=== PATIENT | female | born 1930 | race Caucasian/White ===

== ENCOUNTER → 2019-07-13 | Outpatient (CLI) | payer MEDICARE, BC ==
--- NOTE | 2019-07-13 12:07 | FL ---
Barium swallow HISTORY: Dysphasia 31 seconds fluoroscopy time, 16 intraoperative images document the procedure. Patient was given high density barium to drink. There is a partial intrathoracic stomach, hiatal alvino ia noted. Aorta is dense. Heart is enlarged. Exam is limited by patient's ability to cooperate with exam. IMPRESSION: Large hiatal hernia with partial intrathoracic stomach, limited exam.
== END | disposition home or self-care (01) ==
LOC: RADUSWWP 10:40
PROVIDERS: ATTEND Internal Medicine Gastroenterology
DX: K44.9 Diaphragmatic hernia without obstruction or gangrene (principal)
CPT/HCPCS: 74220

== ENCOUNTER → 2019-09-13 | Outpatient (CLI) | payer MEDICARE, BC ==
--- NOTE | 2019-09-13 12:23 | XR ---
Right knee HISTORY: Trauma and pain 3 views of the right knee Bone mineralization is reduced which could limit sensitivity. Alignment, lateral joint space is maint ained. Marginal spurring present at the medial compartment with some joint space loss, mild spurring and joint space loss at the patellofemoral joint. Atherosclerotic vascular calcifications are present . No evident joint effusion. IMPRESSION: Osteoarthritis and osteoporosis. No fracture or dislocation is evident.
--- NOTE | 2019-09-13 12:33 | XR ---
Right hand and right wrist HISTORY: Right hand pain, trauma several days prior 3 views of the right hand and 4 views of the right wrist Bone mineralization is reduced. Osteoarthritic changes are present. Bone mineralization is reduced. A lignment is maintained with exception of some posterior subluxation at the distal interphalangeal paloma nt of the fifth digit. IMPRESSION: No fracture or dislocation. Additional findings above.
--- NOTE | 2019-09-13 12:37 | XR ---
Bilateral elbows HISTORY: Pain, trauma 3 views of each elbow submitted. Bone mineralization is reduced. Mild osteoarthritic changes are present right elbow. No evident joint effusion within either elbow. Alignment is maintained. IMPRESSION: No fracture or dislocation.
--- NOTE | 2019-09-13 12:55 | XR ---
Right hip HISTORY: Trauma and pain 2 views of the right hip Bone mineralization is reduced which could limit sensitivity. Difficult to exclude nondisplaced fract ures of the superior inferior pubic rami. No dislocation. Vascular calcifications noted in the pelvis . IMPRESSION: Difficult to exclude nondisplaced fractures as described in the pubic rami, CT or bone sc an could be performed for increased sensitivity.
== END | disposition home or self-care (01) ==
LOC: RADXRMAIN 11:14
PROVIDERS: ATTEND Family Medicine
DX: M17.11 Unilateral primary osteoarthritis, right knee (principal); M19.031 Primary osteoarthritis, right wrist; M19.041 Primary osteoarthritis, right hand; M81.0 Age-related osteoporosis without current pathological fracture; S63.246A Subluxation of distal interphalangeal joint of right little finger, initial encounter; M25.551 Pain in right hip; M25.521 Pain in right elbow; M25.522 Pain in left elbow
CPT/HCPCS: 73502

== ENCOUNTER 2019-11-19 11:58 | Emergency (ER) | payer MEDICARE, BC ==
[2019-11-19 12:23] VITALS: RESP 20
--- NOTE | 2019-11-19 12:39 | ED ---
General Adult HPI - General Chief complaint: Extremity Injury, Upper Stated complaint: Hip Pain Time Seen by Provider: 11/19/19 12:07 Source: patient, EMS Mode of arrival: EMS Limitations: physical limitation - History of Present Illness Initial comments: Patient is an 88-year-old female presenting to the emergency department via EMS with complaints of right hip, right low back pain 3 days. Patient's daughter is here with her now. Patient states she does live by herself and over the past few days have been having increase in pain in her right low back and into her right hip. She denies any recent falls or trauma. Patient states she does like to take walks. She states she knows she has arthritis of both knees as well as right hip. she denies any recent fever, chills, abdominal pain, urinary complaints. she has no other complaints at this time. Upon arrival to the er her vital signs are stable. - Related Data Allergies Allergy/AdvReac Type Severity Reaction Status Date / Time ibuprofen [From Motrin] Allergy Unknown Verified 11/19/19 12:04 Review of Systems ROS Statement: Those systems with pertinent positive or pertinent negative responses have been documented in the HPI. ROS Other: All systems not noted in ROS Statement are negative. Past Medical History Past Medical History: Hypertension, Rheumatoid Arthritis (RA) History of Any Multi-Drug Resistant Organisms: None Reported Past Surgical History: Cholecystectomy Past Psychological History: No Psychological Hx Reported Smoking Status: Never smoker Past Alcohol Use History: None Reported Past Drug Use History: None Reported General Exam - General Exam Comments Initial Comments: GENERAL: Well-appearing, well-nourished and in no acute distress. HEAD: Atraumatic, normocephalic. EYES: Pupils equal round and reactive to light, extraocular movements intact, sclera anicteric, conjunctiva are normal. ENT: Moist mucous membranes. NECK: Normal range of motion, supple without lymphadenopathy or JVD. LUNGS: Breath sounds clear to auscultation bilaterally and equal. No wheezes rales or rhonchi. HEART: Regular rate and rhythm without murmurs, rubs or gallops. ABDOMEN: Soft, nontender, normoactive bowel sounds. No guarding, no rebound. No masses appreciated. : Deferred EXTREMITIES: Patient has full range of motion of the right hip, right knee. There is no pain with palpation of the lower back, gluteal area. She is neurovascular intact. She has no edema. No clubbing or cyanosis. Patient is able to stand and ambulate around her bed. NEUROLOGICAL: Cranial nerves II through XII grossly intact. Normal speech. PSYCH: Normal mood, normal affect. SKIN: Warm, Dry, normal turgor, no rashes or lesions noted. Limitations: physical limitation Course Vital Signs 11/19/19 11/19/19 11:58 14:20 Temperature 98.4 F 98.3 F Pulse Rate 84 76 Respiratory 20 20 Rate Blood Pressure 145/88 123/56 O2 Sat by Pulse 98 99 Oximetry Medical Decision Making - Medical Decision Making Patient is an 88-year-old female here for right sided low back and hip pain 3 days. No falls or trauma. X-rays of the low back reveal severe degenerative changes, no acute changes. Right hip x-ray shows mild arthritis. Urine shows no signs of infection. I discussed with patient and her daughter this is most likely muscle skeletal in nature. He recommended continuing with anti-inflammatories and/or Tylenol as well as heat packs to the area. They're both in agreement with this plan of care. She is stable for discharge. Return parameters were discussed with the patient she verbalized understanding. Case discussed with Dr. Ward. - Lab Data Lab Results 11/19/19 Range/Units 12:45 Urine Color Yellow Urine Appearance Clear (Clear) Urine pH 5.5 (5.0-8.0) Ur Specific [place] 1.016 (1.001-1.035) Urine Protein Negative (Negative) Urine Glucose (UA) Negative (Negative) Urine Ketones Trace H (Negative) Urine Blood Negative (Negative) Urine Nitrite Negative (Negative) Urine Bilirubin Negative (Negative) Urine Urobilinogen <2.0 (<2.0) mg/dL Ur Leukocyte Esterase Negative (Negative) Disposition Clinical Impression: Right low back pain Disposition: HOME SELF-CARE Condition: Stable Instructions (If sedation given, give patient instructions): Low Back Strain (ED) Additional Instructions: Please return to the Emergency Department if symptoms worsen or any other concerns. Continue with anti-inflammatories as discussed. Continue to use walker as needed for assistance. Follow up with PCP. Is patient prescribed a controlled substance at d/c from ED?: No Referrals: Holley Acevedo MD [Primary Care Provider] - 1-2 days
[2019-11-19 13:07] LABS: Appearance,Urine Clear (Clear); Bilirubin,Urine Negative (Negative); Blood,Urine Negative (Negative); Color,Urine Yellow; Glucose,Urine (UA) Negative (Negative); Ketones,Urine Trace (Negative); Leukocyte Esterase,Urine Negative (Negative); Nitrite,Urine Negative (Negative); PH, Urine 5.5 (5.0-8.0); Protein,Urine Negative (Negative); Specific Gravity,Urine 1.016 (1.001-1.035); Urobilinogen,Urine <2.0 mg/dL (<2.0)
--- NOTE | 2019-11-19 13:15 | XR ---
EXAMINATION TYPE: XR Hip Limited RT , ONE VIEW DATE OF EXAM ORDERED: 11/19/2019 HISTORY: pain. COMPARISON: Previous study dated 09/13/2019. FINDINGS: There are mild degenerative changes present in the right hip. No fracture or dislocation i s seen. IMPRESSION: MILD DEGENERATIVE CHANGE.
--- NOTE | 2019-11-19 13:18 | XR ---
EXAMINATION TYPE: XR lumbar spine 2 or 3V , 3 VIEWS DATE OF EXAM ORDERED: 11/19/2019 HISTORY: pain. COMPARISON: None. FINDINGS: There is a gentle dextroscoliosis. There are endplate infractions in both the upper and lower endplates of T1 in the upper endplate of T 2. These are likely old. There is disc space loss, most marked at L2-3, L3-4 and L4-5. There are vacu um phenomena present at L2-3 and L3-4. Alignment is maintained. There is a mild spondylolisthesis of L5 on S1. This appears degenerative. The pedicles are intact. IMPRESSION: 1. 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 2. FAIRLY SEVERE DEGENERATIVE CHANGE.
[2019-11-19] MEDS ORDERED: traMADol 50 MG TAB PO STA (14:07)
[2019-11-19 14:37] VITALS: BP 123/56; PULSE 76; TEMP 98.3
== END 2019-11-19 14:20 | disposition home or self-care (01) ==
LOC: EC 11:58
DX: M54.5 Low back pain (principal); M25.551 Pain in right hip; M16.11 Unilateral primary osteoarthritis, right hip; I10 Essential (primary) hypertension; Z88.6 Allergy status to analgesic agent
CPT/HCPCS: 72100; 73501; 81003; 99284